=== PATIENT | male | born 2000 | race Hispanic/Latino ===

== ENCOUNTER 2022-08-09 06:25 | Emergency (ER) | payer OTHER ==
--- OUTSIDE RECORDS SUMMARY | 2022-08-09 06:28 | XMS REPORT | Continuity of Care Document ---
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 lumbar spine were reconstructed from theconcurrently obtained CT chest, abdomen and pelvis.FINDINGS:THORACIC SPINEThe thoracic curvature is normal. The vertebral bodies are normal in heightand in normal alignment. No facet fracture or subluxation is present.Benign-appearing 1.7 cm sclerotic focus in the T3 spinous process likelyrepresents bony island.The paraspinal soft tissues are unremarkable.The visualized lungs are clear.LUMBAR SPINEThe lumbar curvature is normal. The vertebral bodies are normal in heightand in normal alignment. No facet fracture or subluxation is present. The visualized sacrum and pelvic bones are unremarkable.IMPRESSIONNo acute fracture or traumatic malalignment of the thoracic or lumbarspine.Preliminary Report Dictated by Resident: Bharathi Francisco MD., have reviewed this study and agree with the abovereport. aPTT 2019-08-18 19:57:00 Test Item Value Reference Range Interpretation Comme nts APTT Patient (test code = See_Comment [ Automated message] The 3173-2) system which ge nerated this result tra nsmitted reference range : 23 - 38 Seconds. The re ference range was not u sed to interpret this result as normal/abnormal . JESSENIA (test code = JESSENIA) The [facility] patient population mean normal value for aPTT is 30 seconds. Lab Interpretation (test Normal code = 22832-0) [facility] / [id number] 19:57:00 Test Item Value Reference Range Interpretation Comments PROTIME PATIENT (test See_Comment [Auto mated message] code = 5964-2) The system wh ich generated this result transmitted ref erence range: 12.0 - 1 4.7 Seconds. The re ference range was not u sed to interpret this result as normal/abnor mal. INR (test code = 6301-6) Nor mal INR <1.1; Warfarin Therap eutic range 2.0 to 3. 0 or 2.5 to 3.5, dep ending upon the indica tions. Lab Interpretation (test Normal code = 22014-6) [facility]ETHANOL2020-[facility] 19:44:00 Test Item Value Reference Range Interpretation Comments ALCOHOL (test code = 97 mg/dL 7785644151) JESSENIA (test code = JESSENIA) <10 Umxnathi80-802 Toxic>100 Depression of NEEDLEWORKER>400 Fatalities Reported [facility] Metabolic Panel (NA, K, CL, CO2, GLUCOSE, BUN, CREATININE, CA)2019-08-18 19:43:00 Test Item Value Reference Range Interpretation Comments NA (test code = 142 mmol/L 135-145 5123335689) K (test code = 4.3 mmol/L 3.5-5 6305676740) CL (test code = 104 mmol/L 98-108 7131207882) CO2 TOTAL (test code = 26 mmol/L 23-31 8597011605) AGAP (test code = 2-16 4903824982) BUN (test code = 8 mg/dL 7-23 8782582948) GLUCOSE (test code = 114 mg/dL 70-110 H 9477111391) CREATININE (test code = 0.78 mg/dL 0.6-1.25 7132899024) CALCIUM (test code = 9.7 mg/dL 8.6-10.6 4628576451) eGFR Calculation mL/min/1.73m2 (Non-) (test code = 6177443498) eGFR Calculation mL/min/1.73m2 () (test code = 3601213612) JESSENIA (test code = JESSENIA) Association of Glomerular Filtration Rate (GFR) and Staging of Kidney Disease* + --+ --+ ------+| GFR (mL/min/1.73 m2) ?| With Kidney Damage ?| ?Without Kidney Damage+ --------+ --------+ +| ?>90 ?| ?Stage one ?| ? Normal ?+ ---+ ---+ -------+| ?60-89 ?| ?Stage two ?| ? Decreased GFR ? + --+ --+ ------+| ?30-59 ?| ?Stage three ?| ? Stage three ? + --+ --+ ------+| ?15-29 ?| ?Stage four ? | ? Stage four ?+ ---+ ---+ -------+| ?<15 (or dialysis) ? ?| ?Stage five ? | ? Stage five ?+ ---+ ---+ -------+ *Each stage assumes the associated GFR level has been in effect for at least three months. ?Stages 1 to 5, with or without kidney disease, indicate chronic kidney disease. Notes: Determination of stages one and two (with eGFR >59mL/min/1.73 m2) requires estimation of kidney damage for at least three months as defined by structural or functional abnormalities of the kidney, manifested by either:Pathological abnormalities or Markers of kidney damage (including abnormalities in the composition of the blood or urine or abnormalities in imaging tests). Lab Interpretation Abnormal (test code = 43173-5) [facility] HospitalHep[facility] Function Panel (ALB, T.PRO, BILI T, BU/BC, ALT, AST, ALK PHOS)2019-08-18 19:43:00 Test Item Value Reference Range Interpretation Comments TOTAL BILI (test code = 0108896611) 0.5 mg/dL 0.1-1.1 BILI UNCON (test code = 6473793330) 0.6 mg/dL 0.1-1.1 BILI CONJ (test code = 7754958162) 0.0 mg/dL 0-0.3 T PROTEIN (test code = 8018445936) 8.3 g/dL 6.3-8.2 H ALBUMIN (test code = 6574732580) 5.0 g/dL 3.5-5 ALK PHOS (test code = 6534863979) 113 U/L 34-122 ALTv (test code = 1742-6) 23 U/L 5-50 AST(SGOT) (test code = 6976715212) 26 U/L 13-40 Lab Interpretation (test code = Abnormal 17060-0) [facility] HospitalCBC WITH [id number] 19:33:00 Test Item Value Reference Range Interpretation Comments WBC (test code = See_Comment [Automated 6690-2) message] The sy stem which generated this result transmitted reference range : 4.20 - 10.70 10*3/?L. The reference range was not used to interpret this result as normal/abnormal . RBC (test code = See_Comment [Automated 789-8) message] The sy stem which generated this result transmitted reference range : 4.26 - 5.52 10*6/?L. The reference range was not used to interpret this result as normal/abnormal . HGB (test code = 14.9 g/dL 12.2-16.4 718-7) HCT (test code = 43.3 % 38.4-49.3 4544-3) MCV (test code = 88.7 fL 81.7-95.6 787-2) MCH (test code = 30.5 pg 26.1-32.7 785-6) MCHC (test code = 34.4 g/dL 31.2-35 786-4) RDW-SD (test code = 39.8 fL 38.5-51.6 08327-4) RDW-CV (test code = 12.2 % 12.1-15.4 788-0) PLT (test code = See_Comment [Automated 777-3) message] The sy stem which generated this result transmitted reference range : 150 - 328 10*3/ ?L. The reference r dayana was not used to interpret this result as normal/abnormal . MPV (test code = 9.6 fL 9.8-13 L 25962-2) NRBC/100 WBC (test See_Comment [Automat ed code = 8334402719) message] The system which generated this result transmitted reference range : 0.0 - 10.0 /100 WBCs. The refer ence range was not u sed to interpret th is result as normal/abnormal . NRBC x10^3 (test code <0.01 See_Comment [Auto mated = 3649821273) message] The s ystem which generated this result transmitted reference range : 10*3/?L. The reference range was not used to interpret this result as normal/abnormal . GRAN MAT (NEUT) % 76.0 % (test code = 770-8) IMM GRAN % (test code 0.90 % = 8366779405) LYMPH % (test code = 17.3 % 736-9) MONO % (test code = 5.4 % 5905-5) EOS % (test code = 0.1 % 713-8) BASO % (test code = 0.3 % 706-2) GRAN MAT x10^3(ANC) 5.66 10*3/uL 1.99-6.95 (test code = 8832814070) IMM GRAN x10^3 (test 0.07 10*3/uL 0-0.06 H code = 4402589725) LYMPH x10^3 (test code 1.29 10*3/uL 1.09-3.23 = 731-0) MONO x10^3 (test code 0.40 10*3/uL 0.36-1.02 = 742-7) EOS x10^3 (test code = <0.03 0.06-0.53 L 711-2) BASO x10^3 (test code <0.03 0.01-0.09 = 704-7) Lab Interpretation Abnormal (test code = 36560-4) [facility]"
[2022-08-09] MEDS ORDERED: HYDROCODONE/APAP 5/325 MG TAB ONE (07:26)
[2022-08-09] MEDS ORDERED: TETANUS & DIPHTHERIA TOX,ADULT 0.5 ML VIAL ONE (07:26)
--- NOTE | 2022-08-09 08:42 | RAD REPORT ---
EXAM DESCRIPTION: RAD - Ankle Right 3 View - 08/09/2022 7:57 am CLINICAL HISTORY: PAIN COMPARISON: No comparisons FINDINGS: There is a small avulsion fracture off the medial aspect of the talus. This may be an acut e injury given the adjacent soft tissue swelling. Well corticated bony fragment seen distal to the la teral malleolus has the appearance of old fracture.
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
[2022-08-09 10:11] VITALS: TEMP 97.9
[2022-08-09 10:14] VITALS: BP 131/80; O2SAT 100
== END 2022-08-09 10:02 | disposition home or self-care (01) ==
LOC: ER 06:25
PROC: 2W3QX1Z Immobilization of Right Lower Leg using Splint (ICD-10-PCS; principal; 2022-08-09)
DX: S82.61XA Displaced fracture of lateral malleolus of right fibula, initial encounter for closed fracture (principal); S80.212A Abrasion, left knee, initial encounter; S80.211A Abrasion, right knee, initial encounter; S60.512A Abrasion of left hand, initial encounter; S60.511A Abrasion of right hand, initial encounter; V27.49XA Other motorcycle driver injured in collision with fixed or stationary object in traffic accident, initial encounter; Z23 Encounter for immunization
CPT/HCPCS: 90471; 90714; 99284